=== PATIENT | male | born 1955 | race Caucasian/White ===

== ENCOUNTER 2017-01-17 20:54 | Emergency (ER) | payer OTHER ==
[~2017-01-17] VITALS: Ht 182.9 cm; Wt 93.9 kg
[~2017-01-17 20:54] MED LIST: BUPROPION XL300 MG PO; LORTAB 5-325 M1 EACH PO; LOVENOX80 MG/0.8 SC; Milk Of Magnesia,MOM PO; NORCO 5/3251 TABLET PO; OMEPRAZOLE20 MG PO; PREDNISONE20 MG PO; SENOKOT,SENN1 TABLE1 PO; SERTRALINE HCL50 MG PO; WARFARIN SODIU7.5 MG PO; WARFARIN SODIUM5 MG PO; ZANTAC150 MG PO; ZITHROMAX250 MG PO; Zantac PO; Zoloft PO; oxyCODONE PO
[2017-01-17 21:34] LABS: CHLORIDE 103 mEq/L (99-109); POTASSIUM 4.2 mEq/L (3.7-5.4)
[2017-01-17 21:35] LABS: SODIUM 138 mEq/L (136-147)
[2017-01-17 21:36] LABS: GLUCOSE 109 mg/dL (70-99)
[2017-01-17 21:38] LABS: ANION GAP 10 MEQ/L (2-14)
[2017-01-17 21:40] LABS: GFR ESTIMATE (CALCULATED) 51 mL/min/
[2017-01-17 21:41] LABS: UREA NITROGEN (BUN) 13 mg/dL (9-23)
[2017-01-17 22:02] LABS: MCH 27.1 PG (29.0-34.0); MCHC 33.3 G/DL (30.0-36.0); MCV 81.4 FL (86-99); MEAN PLAT.VOLUME 10.4 uM^3 (9.0-12.4); PLATELET COUNT 123 K/uL (156-360); RBC DIS.WIDTH-CV 12.4 % (11.8-14.6); RBC DIS.WIDTH-SD 36.7 % (39-53); RED BLOOD COUNT 5.28 M/uL (4.00-5.50)
[2017-01-18 00:02] LABS: INFLUENZA A VIRAL ANTIGEN NEGATIVE; INFLUENZA B VIRAL ANTIGEN NEGATIVE
[2017-01-18 00:40] LABS: ADD MIUA? NO; BILIRUBIN NEGATIVE; BLOOD NEGATIVE; COLOR YELLOW ((YELLOW)); GLUCOSE (STRIP) NEGATIVE; KETONES 5; LEUKOCYTES NEGATIVE; NITRITE NEGATIVE; PROTEIN (STRIP) 30; SPECIFIC GRAVITY 1.023 (1.000-1.030); UCUL ADDED? NO
[2017-01-18] MEDS ORDERED: AMOXICILLIN875 MG PO (00:41)
[2017-01-18 01:05] VITALS: BP 115/76
[2017-01-18 08:49] LABS: ABS NEUTROPHIL COUNT 4.6; EOSINOPHIL ABS CT 0; PLAT.SUFFICIENCY DECREASED
== END 2017-01-18 01:08 | disposition home or self-care (01) ==
LOC: EME 20:54
PROVIDERS: Physician Assistant
DX: H66.93 Otitis media, unspecified, bilateral (principal); H61.23 Impacted cerumen, bilateral; J44.9 Chronic obstructive pulmonary disease, unspecified; C85.90 Non-Hodgkin lymphoma, unspecified, unspecified site; F17.200 Nicotine dependence, unspecified, uncomplicated; Z86.718 Personal history of other venous thrombosis and embolism
CPT/HCPCS: 71020; 80048; 81003; 83605; 85025; 87502; 99281; 99284; J7030

== ENCOUNTER 2017-10-01 09:09 | Observation (INO) | payer OTHER ==
[~2017-10-01] VITALS: Ht 180.3 cm; Wt 93.7 kg
[~2017-10-01 09:09] MED LIST changes: +AMOXICILLIN875 MG PO; +RANITIDINE HCL75 MG PO
[2017-10-01 10:20] LABS: CHLORIDE 106 mEq/L (99-109); D-DIMER ELISA < 150.00 ng/mLDDU (<230); POTASSIUM 3.3 mEq/L (3.7-5.4); SODIUM 143 mEq/L (136-147)
[2017-10-01 10:22] LABS: GLUCOSE 118 mg/dL (70-99); HEMATOCRIT 43.6 % (38.0-50.0); HEMOGLOBIN 15.3 G/DL (12.5-16.6); MCH 29.5 PG (29.0-34.0); MCHC 35.1 G/DL (30.0-36.0); RBC DIS.WIDTH-CV 13.1 % (11.8-14.6); RBC DIS.WIDTH-SD 40.3 % (39-53); RED BLOOD COUNT 5.19 M/uL (4.00-5.50); WHITE BLOOD COUNT 13.2 K/uL (4.1-10.2)
[2017-10-01 10:26] LABS: CREATININE 1.2 mg/dL (0.6-1.3); GFR ESTIMATE (CALCULATED) > 59 mL/min/ (58.99-99999)
[2017-10-01 10:27] LABS: PLATELET COUNT 131 K/uL (156-360); UREA NITROGEN (BUN) 15 mg/dL (9-23)
[2017-10-01 10:31] LABS: TROP-I INTERPRETATION NEGATIVE; TROPONIN-I < 0.01 ng/mL (0.0-0.30)
[2017-10-01 11:19] LABS: APPEARANCE CLEAR ((CLEAR)); BILIRUBIN NEGATIVE; BLOOD SMALL; COLOR STRAW ((YELLOW)); GLUCOSE (STRIP) NEGATIVE; KETONES NEGATIVE; LEUKOCYTES NEGATIVE; NITRITE NEGATIVE; PROTEIN (STRIP) NEGATIVE; SPECIFIC GRAVITY 1.002 (1.000-1.030); UROBILINOGEN 0.2 MG/DL (0.2-1.0)
[2017-10-01 11:24] LABS: BACTERIA NONE SEEN /HPF; EPITHELIAL CELLS NONE SEEN /HPF; MUCUS NONE SEEN /LPF; RED BLOOD CELLS NONE SEEN /HPF (0-5); UCUL ADDED? NO; WHITE BLOOD CELLS 0-5 /HPF (0-5)
[2017-10-01] MEDS ORDERED: ASPIR-LOW81 MG PO (11:27)
[2017-10-01] MEDS ORDERED: NITROGLYCERIN0.4 MG SL (11:29)
[2017-10-01] MEDS ORDERED: IMBRUVICA560 MG PO (11:55)
[2017-10-01 12:19] VITALS: BP 134/77
[2017-10-01 15:59] VITALS: BP 134/76
[2017-10-01 16:46] LABS: TROP-I INTERPRETATION NEGATIVE; TROPONIN-I < 0.01 ng/mL (0.0-0.30)
[2017-10-01 20:10] VITALS: BP 130/75
[2017-10-01 22:10] LABS: BASOPHIL (%) 0.3 % (0-1); EOSINOPHIL (%) 1.9 % (0-5); EOSINOPHIL COUNT 0.2 K/uL (0-0.3); HEMOGLOBIN 14.1 G/DL (12.5-16.6); IMMATURE GRANULOCYTE (%) 0.8 % (0.0-0.7); LYMPHOCYTE (%) 16.8 % (15-42); LYMPHOCYTE COUNT 1.5 K/uL (1.0-2.8); MCH 29.1 PG (29.0-34.0); MCHC 34.4 G/DL (30.0-36.0); MCV 84.7 FL (86-99); MONOCYTE (%) 10.1 % (3-12); MONOCYTE COUNT 0.9 K/uL (0-0.8); NEUTROPHIL (%) 70.1 % (45-76); NEUTROPHIL COUNT 6.4 K/uL (1.8-6.4); PLATELET COUNT 126 K/uL (156-360); RBC DIS.WIDTH-CV 13.2 % (11.8-14.6); RBC DIS.WIDTH-SD 40.9 % (39-53); RED BLOOD COUNT 4.84 M/uL (4.00-5.50); WHITE BLOOD COUNT 9.1 K/uL (4.1-10.2)
[2017-10-01 22:32] LABS: TROP-I INTERPRETATION NEGATIVE; TROPONIN-I < 0.01 ng/mL (0.0-0.30)
[2017-10-02] MEDS ORDERED: CIPRO500 MG PO (00:19)
== END 2017-10-02 01:17 | disposition home or self-care (01) ==
LOC: EME 09:09 → EDOF 10:57 → ENRESERV 11:01 → 4SOUTH 12:08
PROVIDERS: Emergency Medicine; Internal Medicine
DX: R07.9 Chest pain, unspecified (principal); C83.10 Mantle cell lymphoma, unspecified site; D72.829 Elevated white blood cell count, unspecified; E87.6 Hypokalemia; K21.9 Gastro-esophageal reflux disease without esophagitis; F17.210 Nicotine dependence, cigarettes, uncomplicated; M25.512 Pain in left shoulder; R06.02 Shortness of breath; R61 Generalized hyperhidrosis; Z92.21 Personal history of antineoplastic chemotherapy; Z80.8 Family history of malignant neoplasm of other organs or systems
CPT/HCPCS: 71045; 80048; 81003; 84132 91; 84484; 85025; 85027; 85379; 93005; 99281; 99285; G0378; J1650